=== PATIENT | female | born 1985 | race Caucasian/White ===

== ENCOUNTER 2019-09-02 20:38 | Inpatient (IN) | payer MEDICAID, SELFPAY ==
[2019-09-02 20:41] VITALS: BP 108/64; PULSE 84; RESP 18; TEMP 36.9; O2SAT 97; BMI 22.4
[2019-09-02 21:48] LABS: Basophils # 0.1 10^3/uL (0.0-0.1); Basophils % 0.8 %; Eosinophils # 0.3 10^3/uL (0.0-0.8); Eosinophils % 3.4 %; Hemoglobin 12.9 g/dL (11.5-15.3); Lymphocytes # 3.5 10^3/uL (0.8-4.8); Lymphocytes % 36.4 %; Mean Corpuscular HGB Conc 32.3 g/dL (30.0-36.0); Mean Corpuscular Hemoglobin 30.1 pg (28.0-34.0); Mean Corpuscular Volume 93.2 fL (81-99); Mean Platelet Volume 9.8 fL (7.4-10.4); Monocytes # 0.8 10^3/uL (0.2-0.9); Monocytes % 8.3 %; Neutrophils # 4.9 10^3/uL (1.8-7.7); Neutrophils % 50.9 %; Nucleated Red Blood Cells % 0 %; Platelet Count 283 10^3/cmm (130-400); Red Blood Count 4.29 10^6/uL (4.1-5.3); White Blood Count 9.6 10^3/uL (4.0-10.0)
[2019-09-02 21:57] LABS: Amphetamines Screen Urine Positive (Negative); Barbiturates Screen Urine Negative (Negative); Benzodiazepines Screen Urine Negative (Negative); Cocaine Screen Urine Negative (Negative); Opiate Screen Urine Negative (Negative); PCP Screen Urine Negative (Negative); THC Screen Urine Negative (Negative)
[2019-09-02 21:59] LABS: HCG Qualitative Urine. Negative (Negative)
[2019-09-02 22:07] LABS: Add Urine Microscopic? YES; Bilirubin Urine Neg (NEGATIVE); Blood Urine Neg (Negative); Glucose Urine UA Norm (Normal); Ketones Urine Negative (Negative); Leukocyte Esterase Urine Negative (Negative); Nitrate Urine Negative (Negative); Protein Urine Neg (Negative); Specific Gravity, Urine 1.015 (1.005-1.030); Urine Appearance Hazy (CLEAR); Urine Color Yellow (Yellow); Urobilinogen Urine 1 mg/dL (Negative); pH Urine 7 (5-7)
[2019-09-02 22:08] LABS: Add Urine Culture? No; Bacteria Urine TRACE; Squamous Epithelial Cell Urine 25-40 (0-5)
[2019-09-02 22:14] LABS: Alanine Aminotransferase 12 U/L (0-33); Albumin Level 3.9 g/dL (3.5-5.2); Alkaline Phosphatase 59 IU/L (35-105); Anion Gap 12.6 (5-19); Aspartate Amino Transferase 16 U/L (0-32); Blood Urea Nitrogen 9 mg/dL (6-20); Carbon Dioxide 28 mmol/L (22-29); Chloride 100 mmol/L (98-107); Globulin 2.2 g/dL (1.3-4.6); Glomerular Filtration Rate 72.6 mL/min (90-130); Glucose 73 mg/dL (65-115); Osmolality Calculated 279 mOsm/kg (285-295); Potassium 3.6 mmol/L (3.5-5.1); Sodium 137 mmol/L (136-145); Total Bilirubin 0.5 mg/dL (0.15-1.2); Total Protein 6.1 g/dL (6.6-8.7)
[2019-09-02 22:18] LABS: Acetaminophen < 5.0 ug/mL (10-30); Alcohol Level < 10 mg/dL (0-10); Salicylate < 0.3 mg/dL (3-10)
[2019-09-02] MEDS: LORazepam 2 mg Tablet PO (22:20)
--- NOTE | 2019-09-02 22:36 | PC.NURSE ---
during pt rounding, pt requesting something for anxiety . notified
--- NOTE | 2019-09-02 22:41 | ED_ITS ---
HPI - Psych General: Chief Complaint: Psychiatric Symptoms Stated Complaint: HEARING VOICES Time Seen by Provider: 09/02/19 20:46 Source: patient Mode of arrival: EMS Limitations: no limitations History of Present Illness: HPI Narrative: 33-year-old female patient with a history of schizophrenia who is currently not on any psychiatric medications because she did not like how it made her feel presents to the emergency department with complaints of auditory hallucinations. This has been going on for a long time but is getting worse in the last few days. She says the voices are very derogatory to her and make her feel like nothing. It is getting to the point where she feels she is no longer able to cope. She is therefore here to be evaluated and admitted to the neuropsy chiatric unit for evaluation. She denies homicidal or suicidal ideation. complaint: other Duration: constant and getting worse Context: recent drug abuse and not taking psychiatric medications Associated symptoms: Reports auditory hallucinations; Deny homicidal ideation or suicidal ideation Treatments prior to arrival: none Review of Systems General: Reports: 10 or more systems reviewed and unremarkable except in HPI and below Const: Denies: fever(s), chills or body aches Eyes: Denies: change in vision or blurry vision ENMT: Denies: throat pain, enlarged tonsils, odynophagia, hoarseness, mouth pain or swelling of lips/tongue Card: Denies: palpitations, irregular heart rhythm, edema or swelling of feet/ankles Resp: Denies: dyspnea, productive cough or non-productive cough GI: Denies: abdominal pain, nausea or vomiting : Denies: flank pain, difficulty voiding, dysuria, urinary frequency, urinary urgency or urinary hesitancy Musc: Denies: neck pain, back pain or extremity swelling Skin/Breast: Denies: rash, pruritus or erythema Neuro: Denies: headache(s), numbness in extremities or weakness in extremities Psych: Reports: auditory hallucinations; Denies: tactile hallucinations, suicidal ideation or homicidal ideation Endo: Denies: polyuria, polydipsia or tired all the time PFS ED PFSH: Social History Smoking and tobacco status: current every day smoker Female Reproductive History: Date of last menstrual period: 08/19/19 Physical Exam Const: COMMON NORMALS: no acute distress, average body habitus, patient oriented x3, no limitations, healthy appearing, alert and well nourished Neck/C-Spine: COMMON NORMALS: no meningeal signs and no JVD Resp: COMMON NORMALS: normal respiratory effort, No retractions, No use of accessory muscles, clear to auscultation bilaterally and percussion normal AUSCULTATION: clear to auscultation bilaterally PERCUSSION: percussion normal Cardio: COMMON NORMALS: no JVD, regular rate, regular rhythm, S1 normal heart sound present, S2 normal heart sound present, No gallops present (Cardio), No cl icks present (Cardio), No murmurs present (Cardio), No rub (Cardio) and Peripheral pulses 2+ throughout RATE: regular rate RHYTHM: regular rhythm HEART SOUNDS: S1 normal heart sound present and S2 normal heart sound present PERIPHERAL PULSES: Peripheral pulses 2+ throughout GI: COMMON NORMALS: Normal to inspection, nondistended, normoactive bowel sounds present, Soft to palpation, non-tender, No hepatosplenomegaly present, no masses and no bruits PALPATION: Yes Soft to palpation and Yes No hepatosplenomegaly present : COMMON NORMALS: Yes no CVA tenderness BLADDER/KIDNEY EXAM: Yes no CVA tenderness Back/Pelvis: COMMON NORMALS: no CVA tenderness Extremity: COMMON NORMALS: normal to inspection, full ROM, capillary refill normal, no calf tenderness and no pedal edema Neuro: COMMON NORMALS: patient oriented x3 SENSORIUM/ORIENTATION: Yes alert MENINGEAL SIGNS: Yes no meningeal signs Psych: COMMON NORMALS: mental status grossly normal, cooperative, normal affect and speech normal ATTITUDE: Yes calm ACTIVITY/MOTOR BEHAVIOR: Yes appropriate eye contact SPEECH: Yes normal speech Skin: COMMON NORMALS: no rashes or lesions noted, no wounds, turgor normal, no jaundice, no petechiae and no mottling GENERAL SKIN EXAM: no rashes or lesions noted and turgor normal MDM - Psych MDM Narrative: Medical decision making narrative: 33-year-old female patient with a history of schizophrenia and methamphetamine abuse and is of her medications presents to the emergency department with auditory hallucinations. She denies suicidal or homicidal ideations. No hallucinations are getting worse and she is unable to cope with it at this time. She is therefore medically cleared and admitted to the neuropsychiatric unit fall further evaluation and management. Lab Data: Labs: Lab Results 09/02/19 09/02/19 09/02/19 Range/Units 21:25 21:25 21:25 WBC (4.0-10.0) 10^3/ uL RBC (4.1-5.3) 10^6/u L Hgb (11.5-15.3) g/dL Hct (37.0-47.0) % MCV (81-99) fL MCH (28.0-34.0) pg MCHC (30.0-36.0) g/dL RDW (12.1-15.1) % Plt Count (130-400) 10^3/c mm MPV (7.4-10.4) fL Neut % (Auto) % Lymph % (Auto) % [place] % (Auto) % Eos % (Auto) % Baso % (Auto) % Neut # (Auto) (1.8-7.7) 10^3/u L Lymph # (Auto) (0.8-4.8) 10^3/u L [place] # (Auto) (0.2-0.9) 10^3/u L Eos # (Auto) (0.0-0.8) 10^3/u L Baso # (Auto) (0.0-0.1) 10^3/u L Nucleated RBC % (a uto) % Nucleated RBCs # /100WBC Sodium (136-145) mmol/L Potassium (3.5-5.1) mmol/L Chloride (98-107) mmol/L Carbon Dioxide (22-29) mmol/L Anion Gap (5-19) BUN (6-20) mg/dL Creatinine (0.5-0.9) mg/dL GFR Calculation (90-130) mL/min Glucose (65-115) mg/dL Calculated Osmolal ity (285-295) mOsm/k g Calcium (8.5-10.5) mg/dL Total Bilirubin (0.15-1.2) mg/dL AST (0-32) U/L ALT (0-33) U/L Alkaline Phosphata se (35-105) IU/L Total Protein (6.6-8.7) g/dL Albumin (3.5-5.2) g/dL Globulin (1.3-4.6) g/dL HCG, Qual Negative (Negative) Urine Color Yellow (Yellow) Urine Appearance Hazy A (CLEAR) Urine pH 7 (5-7) Ur Specific Gravit y 1.015 (1.005-1.030) Urine Protein Neg (Negative) Urine Glucose (UA) Norm (Normal) Urine Ketones Negative (Negative) Urine Blood Neg (Negative) Urine Nitrate Negative (Negative) Urine Bilirubin Neg (NEGATIVE) Urine Urobilinogen 1 H (Negative) mg/dL Ur Leukocyte Claudia ase Negative (Negative) Urine RBC None (0-2) /hpf Urine WBC None (0-5) /hpf Ur Squamous Epith Cells 25-40 H (0-5) Amorphous Sediment Not Reportable Urine Bacteria Trace (NONE) Salicylates (3-10) mg/dL Urine Opiates Scre en Negative (Negative) ng/mL Acetaminophen (10-30) ug/mL Ur Barbiturates Sc reen Negative (Negative) ng/mL Ur Phencyclidine S crn Negative (Negative) ng/mL Ur Amphetamines Sc reen Positive H (Negative) ng/mL U Benzodiazepines Scrn Negative (Negative) ng/mL Urine Cocaine Scre en Negative (Negative) ng/mL U Marijuana (THC) Screen Negative (Negative) ng/mL Ethyl Alcohol (0-10) mg/dL 09/02/19 09/02/19 Range/Units 21:30 21:30 WBC 9.6 (4.0-10.0) 10^3/ uL RBC 4.29 (4.1-5.3) 10^6/u L Hgb 12.9 (11.5-15.3) g/dL Hct 40.0 (37.0-47.0) % MCV 93.2 (81-99) fL MCH 30.1 (28.0-34.0) pg MCHC 32.3 (30.0-36.0) g/dL RDW 13.0 (12.1-15.1) % Plt Count 283 (130-400) 10^3/c mm MPV 9.8 (7.4-10.4) fL Neut % (Auto) 50.9 % Lymph % (Auto) 36.4 % [place] % (Auto) 8.3 % Eos % (Auto) 3.4 % Baso % (Auto) 0.8 % Neut # (Auto) 4.9 (1.8-7.7) 10^3/u L Lymph # (Auto) 3.5 (0.8-4.8) 10^3/u L [place] # (Auto) 0.8 (0.2-0.9) 10^3/u L Eos # (Auto) 0.3 (0.0-0.8) 10^3/u L Baso # (Auto) 0.1 (0.0-0.1) 10^3/u L Nucleated RBC % (a uto) 0 % Nucleated RBCs # 0.0 /100WBC Sodium 137 (136-145) mmol/L Potassium 3.6 (3.5-5.1) mmol/L Chloride 100 (98-107) mmol/L Carbon Dioxide 28 (22-29) mmol/L Anion Gap 12.6 (5-19) BUN 9 (6-20) mg/dL Creatinine 0.9 (0.5-0.9) mg/dL GFR Calculation 72.6 L (90-130) mL/min Glucose 73 (65-115) mg/dL Calculated Osmolal ity 279 L (285-295) mOsm/k g Calcium 9.0 (8.5-10.5) mg/dL Total Bilirubin 0.5 (0.15-1.2) mg/dL AST 16 (0-32) U/L ALT 12 (0-33) U/L Alkaline Phosphata se 59 (35-105) IU/L Total Protein 6.1 L (6.6-8.7) g/dL Albumin 3.9 (3.5-5.2) g/dL Globulin 2.2 (1.3-4.6) g/dL HCG, Qual (Negative) Urine Color (Yellow) Urine Appearance (CLEAR) Urine pH (5-7) Ur Specific Gravit y (1.005-1.030) Urine Protein (Negative) Urine Glucose (UA) (Normal) Urine Ketones (Negative) Urine Blood (Negative) Urine Nitrate (Negative) Urine Bilirubin (NEGATIVE) Urine Urobilinogen (Negative) mg/dL Ur Leukocyte Claudia ase (Negative) Urine RBC (0-2) /hpf Urine WBC (0-5) /hpf Ur Squamous Epith Cells (0-5) Amorphous Sediment Urine Bacteria (NONE) Salicylates < 0.3 L (3-10) mg/dL Urine Opiates Scre en (Negative) ng/mL Acetaminophen < 5.0 L (10-30) ug/mL Ur Barbiturates Sc reen (Negative) ng/mL Ur Phencyclidine S crn (Negative) ng/mL Ur Amphetamines Sc reen (Negative) ng/mL U Benzodiazepines Scrn (Negative) ng/mL Urine Cocaine Scre en (Negative) ng/mL U Marijuana (THC) Screen (Negative) ng/mL Ethyl Alcohol < 10 (0-10) mg/dL Coding Level of Care Code ED [facility] Agent for Chg Дмитрий
[2019-09-02 23:37] VITALS: BP 96/68; PULSE 74; RESP 16; O2SAT 97
--- NOTE | 2019-09-02 23:42 | PC.NURSE ---
i agree with this assessment
[2019-09-03 00:44] VITALS: BP 104/59; PULSE 72; RESP 17; TEMP 36.6; O2SAT 96
[2019-09-03 06:00] VITALS: BP 123/74; PULSE 85; RESP 17; TEMP 36.9; O2SAT 98
--- NOTE | 2019-09-03 12:10 | PM.NHP ---
Providers/Chief Complaint Admitting Physician: Enrrique Duncan MD Chief Complaint: HEARING VOICES HPI NPU History of Present Illness Krystal Hugo is a 33 year old female who presented to the emergency room with a reported history of schizophrenia reporting she is currently not taking her medications because she did not like the way they made her feel but currently presented with efraín psychosis and reporting she cannot take the voices anymore. She reported the voices were saying negative things and challenging her to feel horrible and that she could not manage it any longer. She reportedly denied lethality. She was admitted to the neuropsychiatric unit for definitive treatment of those issues. It was additionally noted that she was positive and acknowledging methamphetamine use but reported that the voices also occur in absence of her use. On the unit this morning she was very anxious and appearing overwhelmed and reporting she needed to get something or she did not know if she would be able to avoid acting in a harmful way against herself. She was able to contract for safety and endorsed that Invega via injection had been a very effective strategy in managing her psychosis. She was a very poor historian mostly secondary to her described feeling of being overwhelmed by her psychotic symptoms. We discussed the risks benefits and alternatives of restarting her Invega orally for a day making sure she had no ill reaction and restarting the Invega injection and she understood and agreed to proceed as is documented in this note. She was also ranting about demons and the voices from the demons telling her she should kill herself and that they are only coming after her because she tries so hard to walk with [employer]. She endorses past suicide attempts. She is reportedly never been in this hospital before. She was clearly overwhelmed and struggling to answer questions and abruptly had to discontinue the interview due to her being so overwhelmed. Psychiatric history: He reports never being in this hospital but being in mostly others in the area reporting 38+ hospitalizations in her life. It is unclear whether she has had psychiatric follow-up anywhere consistently.. Substance abuse history: He endorses use of tobacco and a past and current history of methamphetamine addiction. Family history: she was unclear about family history of mental health or addiction. Developmental history: Unable to obtain. Psychosocial history: She denies that her parents were together when she was born. She reports that she has 2 sisters and that her childhood was good and without abuse of any kind. She did not graduate from high school but did get her GED she reports. She was unable to go much further in the interview with questions so the remainder was unable to be obtained. Legal history: Unable to be obtained. Medical history: Unable to be obtained. Meds NPU Allergies Allergy/AdvReac Type Severity Reaction Status Date / Time cefaclor [From Ceclor] Allergy ADR-Gastrointestinal Verified 09/02/19 20:50 Upset lithium Allergy ADR-Seizure Verified 09/02/19 20:48 olanzapine [From Zyprexa] Allergy ALGY-Rash Verified 09/02/19 20:50 PFSH NPU PFSH: Social History Smoking and tobacco status: current every day smoker Mental Status Exam MSE Comments: This was a slender appearing white female with adequate dress and limited grooming and eye contact. Sitting underneath her covers rocking anxiously. Semicooperative with exam in moderate distress. Speech was normal rate decreased volume. Mood described as overwhelmed affect congruent and tense. Thought process linear thought content: Patient endorsed starting to have suicidal thoughts related to the voices not stopping but denied homicidal ideation, there were no delusions reported but paranoia and Persky Luis and hyper rastafarian thinking exists, she endorsed auditory hallucinations. Attention and concentration were impaired and memory was unreliable but none. She is alert and oriented x3. Insight and judgment are limited. Impulse control was impaired. Vitals/I&O/Wt Last Vital Signs Temp 98.5 F 09/03/19 06:00 Pulse 85 09/03/19 06:00 Resp 17 09/03/19 06:00 BP 123/74 09/03/19 06:00 Pulse Ox 98 09/03/19 06:00 Weight last 48 hrs Weight 61.235 kg Data NPU : 09/02/19 21:30 09/02/19 21:30 A&P Assessment and plan (1) Acute psychosis: Status: Acute (2) Methamphetamine abuse: Status: Acute Additional A&P Information This is a 33-year-old white female with a reported history of psychosis both with and possibly predating her outlasting by far on the methamphetamine history which is current and active who presents endorsing desire to be restarted on Invega. 1. Continue current medication. After at least the day of Invega we will examine restarting the shot if she has possible coverage or means to get it. 2. Encourage individual, group and milieu therapy. 3. Continue to 15-minute checks for safety. 4. Discharge to sober living treatment at the highest level of care to which she is willing to commit. Involuntary Hold Information 96 Hour Hold: 96 Hour Involuntary Admission: No Attestations NPU Medical Necessity Statement*: Inpatient hospitalization is medically necessary and the clinically appropriate intervention at this time. We will restart home medications and monitor for improvement. Likely length of stay 4 to 6 days. Coding Level of Care Code Acute Trial Examiner for Olena Fwd Diagnoses Acute psychosis F23 Methamphetamine abuse F15.10
[2019-09-03] MEDS: paliperidone ER 6 mg Tablet PO (13:02)
[2019-09-03 14:00] VITALS: BP 103/60; PULSE 82; RESP 18; TEMP 36.9
--- NOTE | 2019-09-03 20:44 | PC.NURSE ---
Patient refused physical assessment. Denied S.I., H.I..
[2019-09-03 22:00] VITALS: BP 106/62; PULSE 83; RESP 17; TEMP 36.9; O2SAT 97
[2019-09-04 06:00] VITALS: RESP 16
--- NOTE | 2019-09-04 06:07 | PC.NURSE ---
Patient refused to let staff get weight
[2019-09-04] MEDS: paliperidone ER 6 mg Tablet PO (09:38)
--- NOTE | 2019-09-04 11:46 | P.PN_ITS ---
Subjective NPU Subjective: Interval history: Krystal presents today continuing to really struggle with her psychosis and withdrawal. She was cognizant of the fact however that the process of getting the medication in her system at a reasonable level and effective take some time. We once again reviewed a plan for initiating the injection of Invega. We agreed however that we should make sure we do this after the treatment team has been able to look at her insurance and make sure that this is actually a treatment mode that we would be able to obtain for her. Once were able to verify that we agreed that we would give her the injection. Mental Status Exam MSE Comments: This was a slender appearing white female with adequate dress and limited grooming and eye contact. Sitting underneath her covers with less signs of kinetic anxiety. More cooperative with exam in mild distress. Speech was normal rate decreased volume. Mood described as OK I guess, affect congruent and tense. Thought process linear thought content: Patient endorsed starting to have suicidal thoughts related to the voices not stopping but denied homicidal ideation, there were no delusions reported but paranoia and p ersecutory and hyper mormon thinking exists, she endorsed auditory hallucinations. Attention and concentration were impaired and memory was unreliable but none were formally tested. She is alert and oriented x3. Insight and judgment are limited. Impulse control was impaired. Vitals/I&O/Wt Last Vital Signs Temp 98.6 F 09/04/19 14:00 Pulse 79 09/04/19 14:00 Resp 17 09/04/19 20:32 BP 134/84 09/04/19 14:00 Pulse Ox 82 L 09/04/19 14:00 Weight last 48 hrs Weight 0 g Data NPU : 09/02/19 21:30 09/02/19 21:30 A&P Additional A&P Information (1) Acute psychosis: (2) Methamphetamine abuse: This is a 33-year-old white female with a reported history of psychosis both with and possibly predating her outlasting by far on the methamphetamine history which is current and active who presents endorsing desire to be restarted on Invega. 1. Continue current medication. We will consider giving the Invega Sustenna first injection tomorrow. 2. Encourage individual, group and milieu therapy. 3. Continue to 15-minute checks for safety. 4. Discharge to sober living treatment at the highest level of care to which she is willing to commit. Involuntary Hold Information 96 Hour Hold: 96 Hour Involuntary Admission: No Attestations NPU Medical Necessity Statement*: Inpatient hospitalization is medically necessary and the clinically appropriate intervention at this time. We will restart home medications and monitor for improvement. Likely length of stay 3-5 days. Coding Level of Care Code Acute Respiratory Scientist for Olena Choe
[2019-09-04 14:00] VITALS: BP 134/84; PULSE 79; RESP 19; TEMP 37; O2SAT 82
[2019-09-04] MEDS: nicotine 2 mg Gum BUCCAL (15:16)
[2019-09-04] MEDS: hyDROXYzine 25 mg Capsule 50 MG PO ×2 (16:21→20:39)
[2019-09-04 20:32] VITALS: RESP 17
--- NOTE | 2019-09-04 20:33 | PC.NURSE ---
Patient refused to give vitals, respirations charted.
[2019-09-04] MEDS: trazodone 50 mg Tablet PO (20:39)
--- NOTE | 2019-09-04 21:12 | PC.NURSE ---
pt given prn vistaril and trazodone per request.
[2019-09-05 06:00] VITALS: BP 93/60; PULSE 68; RESP 15; O2SAT 96
[2019-09-05] MEDS: paliperidone ER 6 mg Tablet PO (08:28)
--- NOTE | 2019-09-05 10:00 | P.PN_ITS ---
Subjective NPU Subjective: Interval history: Krystal presents today being a little more alert and for the first time broaching the subject of discharge. She was given the Invega injection and we discussed her follow-up. We discussed continuing the oral medication right now and the risks benefits and alternatives of that and she understood and agreed to proceed as documented in his note as she is still having some symptoms we agreed to continue the oral medication she is reporting a little bit of benefit and was feeling like she might feel well enough to leave tomorrow. Mental Status Exam MSE Comments: This was a slender appearing white female with adequate dress and limited grooming and eye contact. Sitting underneath her covers calmer. More cooperative with exam in no acute distress. Speech was normal rate decreased volume. Mood described as a little better, affect congruent. Thought process more organized: Patient denies suicidal or homicidal ideation, there were no delusions reported but paranoia and persecutory and hyper oriental orthodox thinking exists but are resolving, she denies auditory or visual hallucinations. Attention and concentration were improved and memory was unreliable but none were formally tested. She is alert and oriented x3. Insight and judgment are limited but improving. Impulse control was limited. Vitals/I&O/Wt Last Vital Signs Temp 98.1 F 09/05/19 22:00 Pulse 108 H 09/05/19 22:00 Resp 18 09/05/19 22:00 BP 98/54 09/05/19 22:00 Pulse Ox 98 09/05/19 22:00 Weight last 48 hrs Weight 0 g Data NPU : 09/02/19 21:30 09/02/19 21:30 A&P Additional A&P Information (1) Acute psychosis: (2) Methamphetamine abuse: This is a 33-year-old white female with a reported history of psychosis both with and possibly predating her outlasting by far on the methamphetamine history which is current and active who presents endorsing desire to be restarted on Invega. 1. Continue current medication. Given the Invega Sustenna first injection today. 2. Encourage individual, group and milieu therapy. 3. Continue to 15-minute checks for safety. 4. Discharge to sober living treatment at the highest level of care to which she is willing to commit. Involuntary Hold Information 96 Hour Hold: 96 Hour Involuntary Admission: No Attestations NPU Medical Necessity Statement*: Inpatient hospitalization is medically necessary and the clinically appropriate intervention at this time. We will restart home medications and monitor for improvement. Likely length of stay 1-3 days. Coding Level of Care Code Acute Regulatory And Compliance Technician for Olena Choe
[2019-09-05] MEDS: nicotine 2 mg Gum BUCCAL ×2 (10:15→15:55)
[2019-09-05 13:52] VITALS: BP 96/57; PULSE 80; RESP 18; TEMP 37.2; O2SAT 96
[2019-09-05] MEDS: paliperidone palmitate 234 mg Syringe IM (15:55)
--- NOTE | 2019-09-05 15:57 | PC.NURSE ---
INVELISA SUSTENNA 234 MG GIVEN IM IN RIGHT DELTOID PER PHYSICIAN ORDER. EDUCATED ON MED GIVEN & PT VERBALIZED UNDERSTANDING. WILL CONT TO MONITOR INJECTION SITE FOR ANY REDNESS, SWELLING, OR IRRITATION. LOT [id number] EXP
[2019-09-05] MEDS: haloperidol 5 mg Tablet PO (16:35)
--- NOTE | 2019-09-05 16:35 | PC.NURSE ---
Addendum entered by Dora Berger LPN 09/05/19 17:12: prn med effective no further c/o agitation, pt sleeping in bed in room, resp even et unlabored Original Note: PRN HALDOL 5 MG GIVEN PO PER PT C/O AGITATION. PT VERY UPSET, YELLING AT THE NURSES STATION, SECURITY CALLED TO UNIT. PT UPSET SAYING SHE WANT'S TO LEAVE RIGHT NOW STAFF ATTEMPTED TO EDUCATE PT THAT PHYSICIAN WOULD HAVE TO DISCHARGE HER. PT UPSET AFTER SHE TOOK THAT HALDOL, UPSET THAT SHE WASN'T GIVEN ATIVAN. PT YELLING WHY DO YOU TRY TO KEEP ME SO SEDATED? WILL CONT TO MONITOR
--- NOTE | 2019-09-05 20:33 | PC.NURSE ---
Refused physical assessment, denied SI, HI. auditory or visual hallucinations.
[2019-09-05] MEDS: hyDROXYzine 25 mg Capsule 50 MG PO (20:55)
[2019-09-05] MEDS: trazodone 50 mg Tablet PO (20:55)
[2019-09-05 22:00] VITALS: BP 98/54; PULSE 108; RESP 18; TEMP 36.7; O2SAT 98
[2019-09-06 06:00] VITALS: BP 98/54; PULSE 108; RESP 18; TEMP 36.7; O2SAT 98
[2019-09-06 06:34] VITALS: RESP 17
[2019-09-06] MEDS: paliperidone ER 6 mg Tablet PO (08:11)
[2019-09-06] MEDS: nicotine 2 mg Gum BUCCAL ×3 (10:13→15:28)
[2019-09-06 13:16] VITALS: BP 94/66; PULSE 117; RESP 18; TEMP 37; O2SAT 98
--- NOTE | 2019-09-06 15:27 | P.DS_ITS ---
Diagnoses at Discharge Discharge Diagnosis (1) Acute psychosis: Status: Acute (2) Methamphetamine abuse: Status: Acute Reason for Visit Reason for Visit: HEARING VOICES Brief History: Krystal Hugo is a 33 year old female who presented to the emergency room with a reported history of schizophrenia reporting she is currently not taking her medications because she did not like the way they made her feel but currently presented with efraín psychosis and reporting she cannot take the voices anymore. She reported the voices were saying negative things and challenging her to feel horrible and that she could not manage it any longer. She reportedly denied lethality. She was admitted to the neuropsychiatric unit for definitive treatment of those issues. It was additionally noted that she was positive and acknowledging methamphetamine use but reported that the voices also occur in absence of her use. On the unit this morning she was very anxious and appearing overwhelmed and reporting she needed to get something or she did not know if she would be able to avoid acting in a harmful way against herself. She was able to contract for safety and endorsed that Invega via injection had been a very effective strategy in managing her psychosis. She was a very poor historian mostly secondary to her described feeling of being overwhelmed by her psychotic symptoms. We discussed the risks benefits and alternatives of restarting her Invega orally for a day making sure she had no ill reaction and restarting the Invega injection and she understood and agreed to proceed as is documented in this note. She was also ranting about demons and the voices from the demons telling her she should kill herself and that they are only coming after her b ecause she tries so hard to walk with [employer]. She endorses past suicide attempts. She is reportedly never been in this hospital before. She was clearly overwhelmed and struggling to answer questions and abruptly had to discontinue the interview due to her being so overwhelmed. Psychiatric history: He reports never being in this hospital but being in mostly others in the area reporting 38+ hospitalizations in her life. It is unclear whether she has had psychiatric follow-up anywhere consistently.. Substance abuse history: He endorses use of tobacco and a past and current history of methamphetamine addiction. Family history: she was unclear about family history of mental health or addiction. Developmental history: Unable to obtain. Psychosocial history: She denies that her parents were together when she was born. She reports that she has 2 sisters and that her childhood was good and without abuse of any kind. She did not graduate from high school but did get her GED she reports. She was unable to go much further in the interview with questions so the remainder was unable to be obtained. Legal history: Unable to be obtained. Medical history: Unable to be obtained. Hospital Course Hospital Course Krystal presented to the emergency room with efraín psychosis and inability to make informed consent. She was admitted to the neuropsychiatric unit for definitive treatment of those issues. 1 unit she slowly acclimated to the individual, group and milieu therapies provided. She was agreeable to restart her Invega and also get the Invega injection which was initiated. She showed significant response. During the hospitalization, she had routine laboratory studies were within normal limits except for a few outliers. Additionally she had a general medical evaluation was was also within normal limits and revealed no new acute processes. Discharge Summary At the time of discharge, there was no lethality and psychosis was improving. Her mood and anxiety were well managed. She endorsed the plan to follow-up with treatment team recommendations for treatment after discharge as well as avoiding all drugs of abuse. She was evaluated in deemed to be absent credible lethality and had achieved the maximum benefit from inpatient hospitalization so she was discharged. Involuntary Hold Information 96 Hour Hold: 96 Hour Involuntary Admission: No Mental Status Exam MSE Comments: This was a slender appearing white female with adequate dress and limited grooming and eye contact. Sitting underneath her covers calmer. Cooperative with exam in no acute distress. Speech was normal rate and volume. Mood described as pretty good, affect congruent. Thought process more organized: Patient denies suicidal or homicidal ideation, there were no delusions reported with paranoia and persecutory and hyper zoroastrianism thinking resolving, she denies auditory or visual hallucinations. Attention and concentration were improved and memory was more reliable but none were formally tested. She is alert and oriented x3. Insight and judgment are improving. Imp ulse control was improving. Discharge Data Vitals: Last Vital Signs Temp 98.6 F 09/06/19 13:16 Pulse 117 H 09/06/19 13:16 Resp 18 09/06/19 13:16 BP 94/66 09/06/19 13:16 Pulse Ox 98 09/06/19 13:16 Discharge Plan Discharge Patient Disposition: Home, Self-Care Condition: Stable Prescriptions: New paliperidone 6 mg Tablet Extended Release 24hr 6 mg PO DAILY 30 Days Qty: 30 RF: 0 Invega Sustenna 156 mg/mL syringe 156 mg IM Q30D Qty: 1 RF: 1 Discharge Orders: Discharge Order (Routine); Ordered 09/06/19 Ordered By: Enrrique Duncan Referrals: [facility] [Other] - 1-3 days (call for an appointment as soon as possible! You said that you will make your own appointment. You said you might go see your primary care. ) Discharge Diet: Regular Discharge Activity: Resume usual activity Patient Instructions: Paliperidone (By mouth), Paliperidone (Injection) Discharge Date/Time: 09/06/19 16:13 Discharge Attestations NPU Time Spent in Discharge Care*: less than 30 min Specific Discharge Activities: Specific discharge activities: educating patient, discussing with caseworker protective services/social workers/dc planners, documenting/other paperwork and evaluating patient/reviewing data Coding Level of Care Code Acute Rear Admiral for [facility] Fwd Diagnoses Acute psychosis F23 Methamphetamine abuse F15.10
[2019-09-06 15:45] VITALS: BP 94/66; PULSE 117; RESP 18; TEMP 37; O2SAT 98
== END 2019-09-06 16:13 | disposition home or self-care (01) | DRG 885 ==
LOC: ER 21:11 → NP 22:50
PROVIDERS: Family Medicine; Admitting Provider Psychiatry & Neurology Psychiatry; Visit Provider Psychiatry & Neurology Psychiatry
DX: F23 Brief psychotic disorder (principal); F15.10 Other stimulant abuse, uncomplicated; F17.210 Nicotine dependence, cigarettes, uncomplicated
CPT/HCPCS: 12345; 80053; 80306; 80307; 81001; 81025; 85025; 96372; 99284

== ENCOUNTER 2019-09-02 20:38 | Emergency (ER) | payer MEDICAID, SELFPAY | END 2019-09-02 23:42 | disposition admitted as inpatient to this hospital (09) | LOC: ER 09-06 01:28 | PROVIDERS: Emergency Provider Family Medicine | DX: R44.0 Auditory hallucinations (principal); F17.210 Nicotine dependence, cigarettes, uncomplicated | CPT/HCPCS: 12345; 80053; 80306; 80307; 81001; 81025; 85025; 99284; 99285 ==